=== PATIENT | female | born 1950 | race African-American/Black ===

== ENCOUNTER 2021-07-23 11:54 | Emergency (ER) | payer MEDICARE ==
[~2021-07-23] VITALS: Ht 162.6 cm; Wt 52.2 kg
[2021-07-23] MEDS ORDERED: ONDANSETRON PF 4 MG/2 ML VIAL. IVP ONE (12:15)
[2021-07-23] MEDS ORDERED: KETOROLAC 15 MG/ML VIAL. IVP ONE (12:15)
[2021-07-23] MEDS ORDERED: HYDROmorphone 2 MG/ML INJ. IVP ONE (12:15)
[2021-07-23 12:49] LABS: BASO % 1 % (0-3); EOS % 1 % (0-3); HEMATOCRIT 42.3 % (36.0-47.0); HEMOGLOBIN 13.7 g/dL (12.0-15.5); LYMPH # 0.9 x10^3/uL (1.0-4.8); LYMPH % 14 % (24-48); MEAN CORPUSCULAR HEMOGLOBIN 24 pg (25-35); MEAN CORPUSCULAR HGB CONC 32 g/dL (31-37); MEAN CORPUSCULAR VOLUME 75 fL (79-100); MONO # 0.4 x10^3/uL (0.0-1.1); MONO % 7 % (0-9); NEUT # 4.6 x10^3/uL (1.8-7.7); NEUT % 78 % (31-73); PLATELET COUNT 216 x10^3/uL (140-400); RED BLOOD COUNT 5.63 x10^6/uL (3.50-5.40); RED CELL DISTRIBUTION WIDTH 16.3 % (11.5-14.5)
--- NOTE | 2021-07-23 12:55 | PHYS DOC ---
Past Medical History Past Surgical History: Coronary Bypass Surgery, Pacemaker Smoking Status: Current Every Day Smoker Additional Information: 2-3 cigarettes daily Alcohol Use: Heavy Additional Information: reports drinking 1 16 ounce beer daily Adult General Chief Complaint Chief Complaint: CHEST PAIN HPI HPI Patient is a 70 year old female presenting to the emergency department for evaluation of multiple areas of pain status post fall. Patient states that she tripped over her shoestrings last night she does fall frequently and she fell on her face left shoulder and left knee. There is some loose teeth in her incisors on her mandible. She says she has a gum disease and is afraid that she is going to lose her teet.h she has not called her dentist to this point yet as she was hurting in more areas and wanted to be seen here. Patient says that she has a headache and neck pain but does not think that she lost consciousness. She says she hurts in her chest since the fall as well as she landed on her chest and she hurts in her left lower abdomen as well. Patient denies any vision changes confusion nausea vomiting unilateral weakness numbness or tingling. Patient denies taking any blood thinners. She says she has forgot to take her blood pressure medications for the past 2 days. I offered to give her her blood pressure medications however she says she does not know what they are. She is in no acute distress with normal vital signs other than hypertension noted. Review of Systems Review of Systems Constitutional: Denies fever or chills [] Eyes: Denies change in visual acuity, redness, or eye pain [] HENT: Denies nasal congestion or sore throat [] Respiratory: Denies cough or shortness of breath [] Cardiovascular: + CP GI: + abdominal pain. No nausea, vomiting, bloody stools or diarrhea [] : Denies dysuria or hematuria [] Musculoskeletal: + neck pain, joint pain [] Integument: Denies rash or skin lesions [] Neurologic: + headache, focal weakness or sensory changes [] All other systems were reviewed and found to be within normal limits, except as documented in this note. Current Medications Current Medications Current Medications Medications (Trade) Dose Ordered Sig/Marina Start Time Stop Time Status Last Admin Dose Admin Hydromorphone HCl (Dilaudid) 1 mg 1X ONCE 07/23/21 12:15 07/23/21 12:20 DC Ketorolac Tromethamine (Toradol 15mg Vial) 15 mg 1X ONCE 07/23/21 12:15 07/23/21 12:20 DC 07/23/21 12:40 15 MG Ondansetron HCl (Zofran) 4 mg 1X ONCE 07/23/21 12:15 07/23/21 12:20 DC Allergies Allergies Allergies Coded Allergies Type Severity Reaction Last Updated Verified codeine Adverse Reaction Intermediate "makes me think crazy stuff" 07/23/21 Yes Physical Exam Physical Exam Constitutional: Well developed, well nourished, no acute distress, non-toxic appearance. [] HENT: Normocephalic, atraumatic, bilateral external ears normal, oropharynx moist, no oral exudates, nose normal. 2 of her incisors on her mandible are loose but still intact. Eyes: PERRLA, EOMI, conjunctiva normal, no discharge. [] Neck: Midline cervical tenderness to palpation but no midline thoracic or lumbar tenderness to palpation. Cardiovascular:Heart rate regular rhythm, no murmur [] Lungs & Thorax: Bilateral breath sounds clear to auscultation. Left chest wall tender to palpation but no deformity or crepitus Abdomen: Bowel sounds normal, soft, positive left lower quadrant tenderness to palpation with no rebound or guarding Skin: Warm, dry, no erythema, no rash. [] Back: No tenderness, no CVA tenderness. [] Extremities: Patient with no deformity on her joints however she has pain with palpation range of motion of left shoulder and left knee Neurologic: Alert and oriented X 3, normal motor function, normal sensory function, no focal deficits noted. [] Current Patient Data Vital Signs Vital Signs Date Time Temp Pulse Resp B/P (MAP) Pulse Ox O2 Delivery O2 Flow Rate FiO2 07/23/21 12:39 75 20 179/79 (112) 97 Room Air 07/23/21 12:08 98.7 98.7 Lab Values Laboratory Tests Test 07/23/21 12:33 White Blood Count 6.0 x10^3/uL (4.0-11.0) Red Blood Count 5.63 x10^6/uL (3.50-5.40) H Hemoglobin 13.7 g/dL (12.0-15.5) Hematocrit 42.3 % (36.0-47.0) Mean Corpuscular Volume 75 fL (79-100) L Mean Corpuscular Hemoglobin 24 pg (25-35) L Mean Corpuscular Hemoglobin Concent 32 g/dL (31-37) Red Cell Distribution Width 16.3 % (11.5-14.5) H Platelet Count 216 x10^3/uL (140-400) Neutrophils (%) (Auto) 78 % (31-73) H Lymphocytes (%) (Auto) 14 % (24-48) L Monocytes (%) (Auto) 7 % (0-9) Eosinophils (%) (Auto) 1 % (0-3) Basophils (%) (Auto) 1 % (0-3) Neutrophils # (Auto) 4.6 x10^3/uL (1.8-7.7) Lymphocytes # (Auto) 0.9 x10^3/uL (1.0-4.8) L Monocytes # (Auto) 0.4 x10^3/uL (0.0-1.1) Eosinophils # (Auto) 0.0 x10^3/uL (0.0-0.7) Basophils # (Auto) 0.0 x10^3/uL (0.0-0.2) Sodium Level 141 mmol/L (136-145) Potassium Level 3.9 mmol/L (3.5-5.1) Chloride Level 106 mmol/L (98-107) Carbon Dioxide Level 27 mmol/L (21-32) Anion Gap 8 (6-14) Blood Urea Nitrogen 20 mg/dL (7-20) Creatinine 1.4 mg/dL (0.6-1.0) H Estimated GFR (Cockcroft-Gault) 37.0 BUN/Creatinine Ratio 14 (6-20) Glucose Level 103 mg/dL (70-99) H Calcium Level 8.5 mg/dL (8.5-10.1) Total Bilirubin 0.5 mg/dL (0.2-1.0) Aspartate Amino Transferase (AST) 21 U/L (15-37) Alanine Aminotransferase (ALT) 25 U/L (14-59) Alkaline Phosphatase 74 U/L (46-116) Troponin I High Sensitivity 25 ng/L (4-50) Total Protein 7.1 g/dL (6.4-8.2) Albumin 3.6 g/dL (3.4-5.0) Albumin/Globulin Ratio 1.0 (1.0-1.7) Lipase 87 U/L (73-393) Laboratory Tests 07/23/21 12:33 Laboratory Tests 07/23/21 12:33 EKG EKG Sinus rhythm at 67 bpm with leftward axis. Patient has early repolarization ST changes in leads V1 through V4 with inverted T waves in leads V5 and V6 and normal intervals. Radiology/Procedures Radiology/Procedures [] Course & Med Decision Making Course & Med Decision Making .I will check labs and imaging treat her pain and reassess. Thankfully patient's CT scan back negative for acute process and her x-rays appeared negative for acute fractures. I discussed all incidental findings on labs and imaging and the need for follow-up with primary care provider within 3 to 4 days for recheck. Patient says she feels much better after treatment here in emergency department and would like to go home. She was getting some muscle cramps in her calves prior to discharge so she did get 5 mg of Valium which helped her symptoms. Given patient appears well with normal vital signs benign physical exam work-up and is asking to go home I will discharge her in stable condition told her to follow-up as above and come back to the ER with any worsening pain neurologic changes or other general concerns. Patient aware and agreeable with plan and verbalized understanding of the above instructions. Cookie Disclaimer Cookie Disclaimer This electronic medical record was generated, in whole or in part, using a voice recognition dictation system. Departure Departure Impression: Primary Impression: Facial injury Additional Impressions: CHI (closed head injury) Cervical sprain Rib contusion Sprain of shoulder, left Left knee sprain Disposition: HOME / SELF CARE / HOMELESS Condition: STABLE Patient Instructions: Concussion and Brain Injury, [id number] Script[facility] Ondansetron (ONDANSETRON ODT) 4 Mg Tab.rapdis 1 TAB PO PRN Q6-8HRS, #16 TAB Prov: ITZEL CUNHA DO 07/23/21 Hydrocodone Bit/Acetaminophen (HYDROCODONE-APAP 5-325 ) 1 Tab Tablet 1 TAB PO PRN Q6HRS PRN for PAIN, #14 TAB 0 Refills Prov: ITZEL CUNHA DO 07/23/21 Problem Qualifiers Primary Impression: Facial injury Encounter type: initial encounter Qualified Codes: S09.93XA - Unspecified injury of face, initial encounter Additional Impressions: CHI (closed head injury) Encounter type: initial encounter Qualified Codes: S09.90XA - Unspecified injury of head, initial encounter Cervical sprain Encounter type: initial encounter Qualified Codes: S13.9XXA - Sprain of joints and ligaments of unspecified parts of neck, initial encounter Rib contusion Encounter type: initial encounter Laterality: left Qualified Codes: S20.212A - Contusion of left front wall of thorax, initial encounter Sprain of shoulder, left Encounter type: initial encounter Shoulder sprain type: unspecified sprain Qualified Codes: S43.402A - Unspecified sprain of left shoulder joint, initial encounter Left knee sprain Encounter type: initial encounter Involved ligament of knee: unspecified ligament Qualified Codes: S83.92XA - Sprain of unspecified site of left knee, initial encounter ITZEL CUNHA DO Jul 23, 2021 12:55
[2021-07-23 12:58] LABS: CALCIUM 8.5 mg/dL (8.5-10.1); CREATININE 1.4 mg/dL (0.6-1.0); POTASSIUM 3.9 mmol/L (3.5-5.1)
[2021-07-23 13:04] LABS: ALBUMIN 3.6 g/dL (3.4-5.0); TOTAL BILIRUBIN 0.5 mg/dL (0.2-1.0); TOTAL PROTEIN 7.1 g/dL (6.4-8.2)
--- NOTE | 2021-07-23 14:03 | RAD ---
CT MAXILLOFACIAL WITHOUT CONTRAST, CT HEAD AND C-SPINE WO Date: 07/23/2021 1:24 PM Clinical Indication: pain s/p fall Comparison: None. Technique: Axial computed tomographic images were obtained of the head, maxillofacial structures, an d cervical spine without contrast. Multiplanar reconstructions were performed. One or more of the fol lowing dose reduction techniques were utilized: Automated exposure control (AEC), Adjustment of mA an d/or kV according to patient size, Use of iterative reconstruction technique such as ASiR, CT scan do ne according to ALARA and image gently/image wisely CT Head Findings: Mild generalized cerebral and cerebellar volume loss. Mild nonspecific periventricular hypoattenuatio n, most commonly seen with chronic small vessel ischemic disease. No intra- or extra-axial mass or fluid collection. No acute hemorrhage. The ventricles are normal in size, shape, and morphology. The dewitt-white matter junction is normal. The basilar cisterns are paten t. The mastoid air cells are clear. No aggressive osseous lesion or fracture. CT Face Findings: There is no acute facial bone fracture. Moderate left maxillary sinus and right sphenoid sinus mucosal thickening. The orbits are normal. The globes are intact. CT Cervical Spine Findings: The cervical spine is normally aligned. No acute fracture. No aggressive lytic or blastic osseous les ions. Mild multilevel degenerative disc space height loss. Multilevel mild spinal canal stenosis secondary to disc protrusions and marginal osteophytes. Multilevel mild and moderate neuroforaminal narrowing s econdary to uncovertebral arthrosis. Multilevel mild facet arthrosis. The thyroid gland is normal. No cervical lymphadenopathy. Bilateral carotid atherosclerosis. Poor den tition with multiple dental caries and periapical lucencies. The visualized portions of the lungs are clear. Impression: 1. No acute intracranial process. 2. No acute facial bone fracture. 3. No acute osseous abnormality of the cervical spine 4. Poor dentition with multiple dental caries and periapical lucencies. Electronically signed by: Eduard Tirado MD (07/23/2021 2:01 PM) [facility]
--- NOTE | 2021-07-23 14:08 | RAD ---
Left shoulder 3 views, left knee 3 views. HISTORY: Shoulder pain after a fall, knee pain after a fall. Left knee 3 views were taken the left knee. There is evidence of osteoarthritis with hypertrophic spurring. The re is no acute fracture. There is no definite joint effusion. There is vascular calcification. There are small joint bodies. Left shoulder 3 views were taken of the left shoulder. There is a stent graft in the aorta. There is a left pacemak er. There is no fracture or dislocation at the left shoulder. There is mild arthritis. There is mild spurring at the glenoid. IMPRESSION: 1. Osteoarthritis left knee. 2. Small joint bodies left knee. 3. No acute fracture left knee. 4. Mild arthritis left shoulder. 5. No acute fracture or dislocation left shoulder Electronically signed by: Erick Freedman MD (07/23/2021 2:06 PM) [id number]
--- NOTE | 2021-07-23 14:12 | RAD ---
CT CHEST_ABDOMEN_ AND PELVIS WITHOUT CONTRAST INDICATION: pain s/p fall COMPARISON: None. TECHNIQUE: Multiple contiguous axial images were obtained throughout the chest, abdomen, and pelvis without the use of IV contrast. Axial images were reformatted into coronal and sagittal planes. One or more of th e following dose reduction techniques were utilized: Automated exposure control (AEC), Adjustment of mA and/or kV according to patient size, Use of iterative reconstruction technique such as ASiR, CT sc an done according to ALARA and image gently/image wisely. FINDINGS: Chest Findings: There is no axillary, mediastinal, or hilar adenopathy, although evaluation of the hamida is limited wi thout IV contrast. Postsurgical changes of the descending thoracic aorta stent graft repair. Ectatic descending thoracic aorta measures 4.0 cm in diameter. The cardiac size is normal. Coronary artery atherosclerotic disea se. Mitral annular calcification There is no pericardial effusion. The central airways are patent. Lungs are clear. No pleural abnormality. Abdomen findings: Evaluation of solid abdominal viscera is limited without the use of IV contrast. Left hepatic simple cyst. The gallbladder, spleen, pancreas, and adrenal glands are unremarkable. Right renal atrophy. N onobstructive left renal calculi measuring up to 5 mm. There is no significant mesenteric or retrope ritoneal adenopathy identified, though evaluation is limited without intravenous contrast. There is no evidence of free intraperitoneal fluid or pneumoperitoneum. Extensive colonic diverticulosis. Dif fuse aortoiliac atherosclerotic disease Pelvis findings: Urinary bladder is partially distended. Uterus is present. There is no significant pelvic ascites. No significant iliac or inguinal adenopathy is identified. No acute osseous abnormality. Degenerative changes of the spine. Median sternotomy. IMPRESSION: 1. No evidence of major traumatic thoracic injury. No abdominal solid organ injury. No acute fracture . 2. Extensive colonic diverticulosis. 3. Nonobstructive left renal calculi. Right renal atrophy. Electronically signed by: Eduard Tirado MD (07/23/2021 2:09 PM) [facility]
[2021-07-23] MEDS ORDERED: HYDR-2761 PO (14:26)
[2021-07-23] MEDS ORDERED: ONDA4TAB12 PO (14:26)
[2021-07-23] MEDS ORDERED: diazePAM 5 MG TABLET PO ONE (14:30)
[2021-07-23 14:34] VITALS: BP 212/90
== END 2021-07-23 14:50 | disposition home or self-care (01) ==
LOC: ER 11:54
DX: S83.92XA Sprain of unspecified site of left knee, initial encounter (principal); S43.402A Unspecified sprain of left shoulder joint, initial encounter; S20.212A Contusion of left front wall of thorax, initial encounter; S09.90XA Unspecified injury of head, initial encounter; R51.9 Headache, unspecified; R10.32 Left lower quadrant pain; F17.210 Nicotine dependence, cigarettes, uncomplicated; Z95.1 Presence of aortocoronary bypass graft; Z95.0 Presence of cardiac pacemaker; Z88.5 Allergy status to narcotic agent; F10.20 Alcohol dependence, uncomplicated; Y90.9 Presence of alcohol in blood, level not specified; W18.09XA Striking against other object with subsequent fall, initial encounter; Y93.89 Activity, other specified; Y92.89 Other specified places as the place of occurrence of the external cause; Y99.8 Other external cause status
CPT/HCPCS: 36415; 70450; 70486; 71250; 72125; 73030; 73562; 74176; 80053; 83690; 84484; 85025; 96374; 99285; J1885